=== PATIENT | male | born 1970 | race Caucasian/White ===

== ENCOUNTER 2018-07-26 10:39 | Day surgery (SDC) | payer OTHER ==
[2018-07-25 09:01] VITALS: BMI 28.2
[~2018-07-26 10:39] MED LIST: LACTATED RINGERS 1,000 ML IV SCH; LIDOCAINE 1% 20 ML VIAL (10MG/ML) FOR IV START INTRADERMA PRN
[2018-07-26 11:00] VITALS: TEMP 97.9
[2018-07-26] MEDS ORDERED: PROPOFOL 10 MG/ML 20 ML VIAL IV ONE (11:13)
--- NOTE | 2018-07-26 11:39 | P.PCN ---
Date of Procedure: 07/26/18 Procedure(s) Performed: BRIEF HISTORY: Patient is a 47-year-old pleasant female, scheduled for an elective colonoscopy as a part of surveillance of long-standing history of ulcerative colitis diagnosed at age 14. Lately has been having about 10 bowel movements daily with no blood or mucus in the stool. He is presently on no maintenance medications. PROCEDURE PERFORMED: Colonoscopy with biopsy. PREOPERATIVE DIAGNOSIS: Long-standing history of ulcerative colitis diagnosed at age 58, now with chronic diarrhea. IV sedation per Anesthesia. PROCEDURE: After informed consent was obtained, the patient, was brought into the endoscopy unit. IV sedation was administered by Anesthesia under continuous monitoring. Digital rectal examination was normal. Initially the Olympus CF- 160 flexible video colonoscope was then inserted in the rectum, gradually advanced into the cecum without any difficulty. Careful examination was performed as the scope was gradually being withdrawn. Ileocecal valve and the appendiceal orifice were visualized and appeared normal. Prep was excellent. Mucosa of the cecum, ascending colon, transverse colon, appeared normal. There was evidence of active colitis involving the descending colon, sigmoid colon, and rectum with mucosal erythema friability, granularity and loss of mucosal haustrations as well as spontaneous bleeding. There was a polyps noted in this area. Multiple biopsies were done at every 10 cm into well.. The patient tolerated the procedure well. IMPRESSION: Active left sided colitis with mucosal erythema, friability, granularity, spontaneous bleeding with loss of haustrations consistent with active ulcerative colitis Right colon appeared normal RECOMMENDATIONS: Findings of this examination were discussed with the patient as well as his family. He was advised to follow with the biopsy results and he will be seen in the office in 2 weeks. He will be started on prednisone 40 mg daily and will be tapered by 5 mg every week..
[2018-07-26 12:05] VITALS: BP 124/86; PULSE 52; RESP 18
== END 2018-07-26 12:39 | disposition home or self-care (01) ==
LOC: ORWHC2ENDO 10:39
PROVIDERS: ATTEND Internal Medicine Gastroenterology
DX: K51.90 Ulcerative colitis, unspecified, without complications (principal)
CPT/HCPCS: 88305; 45380; J2704

== ENCOUNTER → 2019-04-07 | Outpatient (CLI) | payer OTHER ==
[2019-04-07 18:59] LABS: HCT 41.4 % (39.0-53.0); HGB 13.9 gm/dL (13.0-17.5); MCHC 33.7 g/dL (31.0-37.0); MCV 86.1 fL (80.0-100.0); Mean Platelet Volume 8.2; Platelet Count 222 k/uL (150-450); RBC 4.81 m/uL (4.30-5.90); RDW 13.8 % (11.5-15.5); WBC 8.2 k/uL (3.8-10.6)
[2019-04-08 00:18] LABS: African American GFR (CKD) 90.9 (60.0-200.0); Albumin 4.4 g/dL (3.80-4.90); Albumin/Globulin Ratio 2.2 (1.60-3.17); Anion Gap 11.3 mmol/L (4.00-12.00); BUN/Creat Ratio 17.27 Ratio (12.00-20.00); C Reactive Protein 0.9 mg/dL (0.0-0.8); Carbon Dioxide 20.7 mmol/L (21.6-31.8); Potassium 4.2 mmol/L (3.5-5.5); Total Bilirubin 0.3 mg/dL (0.3-1.2); Total Protein 6.4 g/dL (6.2-8.2)
[2019-04-08 01:50] LABS: Hepatitis C IgG Antibody Non-Reactive (Non-Reactive)
== END | disposition home or self-care (01) ==
LOC: LABWHC1 17:17
PROVIDERS: ATTEND Internal Medicine Gastroenterology
DX: K51.90 Ulcerative colitis, unspecified, without complications (principal)
CPT/HCPCS: 36415; 80053; 85027; 86140; 86480; 86704; 86803; 87340

== ENCOUNTER 2021-08-19 10:24 | Day surgery (SDC) | payer OTHER ==
[2021-08-18 08:27] VITALS: BMI 29.0
[~2021-08-19 10:24] MED LIST changes: -LIDOCAINE 1% 20 ML VIAL (10MG/ML) FOR IV START INTRADERMA PRN
[2021-08-19 11:02] VITALS: TEMP 97.9
[2021-08-19] MEDS ORDERED: fentaNYL (PF) 50 MCG/ML 2 ML AMP ONE (12:35)
[2021-08-19] MEDS ORDERED: PROPOFOL 10 MG/ML 20 ML VIAL IV ONE (12:35)
[2021-08-19] MEDS ORDERED: MIDAZOLAM 2 MG/2 ML VIAL ONE (12:35)
[2021-08-19] MEDS ORDERED: LIDOCAINE 1% INJ 10MG/ML (20 ML MDV) ONE (12:35)
--- NOTE | 2021-08-19 13:02 | P.PCN ---
Date of Procedure: 08/19/21 Procedure(s) Performed: BRIEF HISTORY: Patient is a 50-year-old pleasant male scheduled for an elective colonoscopy as a part of evaluation of long-standing history of ulcerative colitis diagnosed at age 49. Last colonoscopy was 3 years ago. PROCEDURE PERFORMED: Colonoscopy biopsy and snare polypectomy. PREOPERATIVE DIAGNOSIS: Long-standing history of ulcerative colitis. IV sedation per Anesthesia. PROCEDURE: After informed consent was obtained, the patient, was brought into the endoscopy unit. IV sedation was administered by Anesthesia under monitoring. Digital rectal examination was normal. Initially the Olympus CF-160 flexible video colonoscope was then inserted in the rectum, gradually advanced into the cecum without any difficulty. Careful examination was performed as the scope was gradually being withdrawn. Ileocecal valve and the appendiceal orifice were visualized and appeared normal. Prep was excellent. Mucosa of the cecum, appeared normal. In the ascending colon there was a patchy area of erythema that was biopsied. The rest of the ascending colon, transverse colon, appeared normal. There was active colitis involving the descending colon, sigmoid colon, and rectum appeared 50 cm from anal verge with mucosal erythema, friability, granularity and spontaneous oozing consistent with severe active colitis. In the sigmoid colon there was a 2 cm polyp that was removed by snare polypectomy. In the distal rectum there was another 2 cm polyp that was removed by snare p olypectomy.. . The patient tolerated the procedure well. IMPRESSION: Severe active colitis involving the left colon extending from ascending colon all the way to the rectum up to 50 cm from the anal verge with mucosal erythema friability granularity spontaneous oozing and multiple pseudopolyps with active colitis. 2 cm polyp in the sigmoid colon status post polypectomy 2 cm polyp in the distal rectum status post polypectomy Right colon appeared normal except for small patchy erythema in the ascending colon status post biopsies RECOMMENDATIONS: Findings of this examination were discussed with the patient as well his family. He was advised to follow with the biopsy results..He'll be started on prednisone 40 mg daily every 2 weeks. He will be seen in office in 2 weeks. In the meantime he will continue Humira every 2 weeks.
[2021-08-19 13:29] VITALS: BP 125/78; PULSE 59; RESP 20
[2021-08-19 14:39] LABS: Basophils % (A) 1 %; Eosinophils # (A) 0.1 k/uL (0-0.7); Eosinophils % (A) 1 %; HCT 43.2 % (39.0-53.0); HGB 15.3 gm/dL (13.0-17.5); Lymphocytes # (A) 0.9 k/uL (1.0-4.8); Lymphocytes % (A) 18 %; MCHC 35.4 g/dL (31.0-37.0); MCV 87.7 fL (80.0-100.0); Mean Platelet Volume 8.4; Monocytes # (A) 0.3 k/uL (0-1.0); Monocytes % (A) 6 %; Neutrophils # (A) 3.5 k/uL (1.3-7.7); Neutrophils % (A) 72 %; Platelet Count 192 k/uL (150-450); RBC 4.93 m/uL (4.30-5.90); RDW 13.3 % (11.5-15.5); WBC 4.9 k/uL (3.8-10.6)
[2021-08-19 14:42] LABS: ALT 20 U/L (4-49); AST 26 U/L (17-59); African American GFR (CKD) >90 (>60 ml/min/1.73 sqM); Albumin 4.1 g/dL (3.5-5.0); Alkaline Phosphatase 75 U/L (38-126); Anion Gap 8 mmol/L; Blood Urea Nitrogen 21 mg/dL (9-20); Calcium 9.2 mg/dL (8.4-10.2); Carbon Dioxide 24 mmol/L (22-30); Chloride 105 mmol/L (98-107); Glucose 97 mg/dL (74-99); Non-African American GFR(CKD) 81 (>60 ml/min/1.73 sqM); Potassium 4.1 mmol/L (3.5-5.1); Sodium 137 mmol/L (137-145); Total Bilirubin 0.7 mg/dL (0.2-1.3); Total Protein 7.2 g/dL (6.3-8.2)
[2021-08-19 16:03] LABS: Erythrocyte Sedimentation Rate 8 mm/hr (0-15)
[2021-08-19 20:18] LABS: Hepatitis B Surface Antigen Nonreactive (Nonreactive); Hepatitis C IgG Antibody Nonreactive (Nonreactive)
== END 2021-08-19 14:19 | disposition home or self-care (01) ==
LOC: ORWHC2ENDO 10:24
PROVIDERS: ATTEND Internal Medicine Gastroenterology
DX: K51.90 Ulcerative colitis, unspecified, without complications (principal); K63.5 Polyp of colon; K62.1 Rectal polyp; H26.9 Unspecified cataract; Z79.899 Other long term (current) drug therapy
CPT/HCPCS: 86803; 88305; 80053; 85652; 85025; 86140; 87340; 86704; 45380; 45385; J2250; J2001; J3010; J2704; 86480

== ENCOUNTER → 2021-09-07 | Outpatient (CLI) | payer OTHER | END | disposition home or self-care (01) | LOC: LABWHC1 13:53 | PROVIDERS: ATTEND Internal Medicine Gastroenterology | DX: K51.90 Ulcerative colitis, unspecified, without complications (principal) | CPT/HCPCS: 36415; 86480 ==

== ENCOUNTER → 2022-05-31 | Outpatient (CLI) | payer OTHER ==
[2022-05-31 14:58] LABS: Basophils # (A) 0.05 X 10*3/uL (0.00-0.10); Eosinophils # (A) 0.23 X 10*3/uL (0.04-0.35); Eosinophils % (A) 4.6 %; HCT 44.8 % (39.6-50.0); HGB 15.7 g/dL (13.0-17.0); Immature Grans, Automated 0.2 %; Lymphocytes # (A) 1.54 X 10*3/uL (0.90-5.00); Lymphocytes % (A) 31.1 %; MCH 30.7 pg (27.0-32.0); MCV 87.5 fL (80.0-97.0); Mean Platelet Volume 11.2 fL (9.5-12.2); Monocytes # (A) 0.57 X 10*3/uL (0.20-1.00); Monocytes % (A) 11.5 %; NRBC Per 100 WBC 0 /100 WBCS (0.0-0.0); Neutrophils # (A) 2.55 X 10*3/uL (1.80-7.70); Neutrophils % (A) 51.6 %; Platelet Count 200 X 10*3/uL (140-440); RBC 5.12 X 10*6/uL (4.40-5.60); WBC 4.95 X 10*3/uL (4.50-10.00)
[2022-05-31 17:36] LABS: Albumin 4.8 g/dL (3.8-4.9); Albumin/Globulin Ratio 2.09 (1.60-3.17); BUN/Creat Ratio 16.36 Ratio (12.00-20.00); Calcium 9.4 mg/dL (8.7-10.3); Globulin 2.3 g/dL (1.6-3.3); Non-African American GFR(CKD) 76.8 (60.0-200.0); Potassium 4.4 mmol/L (3.5-5.5); Total Bilirubin 0.3 mg/dL (0.30-1.20); Total Protein 7.1 g/dL (6.2-8.2)
[2022-06-01 17:16] LABS: Chol/HDL Ratio 4.85 Ratio; LDL Cholesterol,Calculated 147.9 mg/dL (0.0-131.0)
== END | disposition home or self-care (01) ==
LOC: LABWHC1 09:37
PROVIDERS: ATTEND Internal Medicine Gastroenterology
DX: K51.90 Ulcerative colitis, unspecified, without complications (principal)
CPT/HCPCS: 36415; 80053; 80061; 84153; 85025

== ENCOUNTER → 2023-12-14 | Day surgery (SDC) | payer BC, OTHER ==
[~2023-12-14] MED LIST changes: -LACTATED RINGERS 1,000 ML IV SCH; +PROPOFOL 10 MG/ML 20 ML VIAL IV ONE
[2023-12-14] MEDS: LACTATED RINGERS 1,000 ML IV SCH (10:47)
[2023-12-14 11:14] VITALS: RESP 18; TEMP 98.4
--- NOTE | 2023-12-14 12:02 | P.PCN ---
Date of Procedure: 12/14/23 Procedure(s) Performed: BRIEF HISTORY: Patient is a 53-year-old pleasant white male scheduled for an elective colonoscopy as a part of surveillance of long-standing history of ulcerative colitis diagnosed at age 49. His present maintained on infliximab every 8 weeks and has been in clinical remission. PROCEDURE PERFORMED: Colonoscopy with biopsy and snare polypectomy. PREOPERATIVE DIAGNOSIS: Long-standing history of ulcerative colitis. IV sedation per Anesthesia. PROCEDURE: After informed consent was obtained, the patient, was brought into the endoscopy unit. IV sedation was administered by Anesthesia under continuous monitoring. Digital rectal examination was normal. Initially the Olympus CF-160 flexible video colonoscope was then inserted in the rectum, gradually advanced into the cecum without any difficulty. Careful examination was performed as the scope was gradually being withdrawn. Ileocecal valve and the appendiceal orifice were visualized and appeared normal. Prep was excellent. Mucosa of the cecum, ascending colon, transverse colon, appeared normal. In the descending colon there were pseudopolyps measuring 7 mm and 1 cm in size both of them removed by snare polypectomy. In the sigmoid colon there were 2 pseudopolyps/inflammatory polyps measuring 5 mm and 1 cm in size removed by snare polypectomy. In the rectum there was a 5 mm and 1 m polyp removed by snare polypectomy. The mucosa involving the descending colon, sigmoid colon, and rectum appeared normal. Retro flexion was performed in the rectum and no lesions were seen. The patient tolerated the procedure well. IMPRESSION: Normal-appearing colon up to the cecum with no evidence of active colitis Multiple large pseudopolyps noted in the descending colon, sigmoid colon and rectum all measuring between 7 mm to 1 cm in size which were removed by snare polypectomy. RECOMMENDATIONS: Findings of this examination were discussed with the patient as well as his family. He was advised to follow with the biopsy results. If the biopsy does not show any evidence of dysplasia he can have a repeat colonoscopy in 2 years..
[2023-12-14 12:34] VITALS: BP 138/86; PULSE 50
== END ==
LOC: ORWHC2ENDO 10:27
PROVIDERS: ATTEND Internal Medicine Gastroenterology
DX: K51.40 Inflammatory polyps of colon without complications (principal); K62.1 Rectal polyp
CPT/HCPCS: 88305; 45385; J2704; 45380